=== PATIENT | female | born 1990 | race Caucasian/White ===

== ENCOUNTER 2020-08-23 03:42 | Emergency (ER) | payer OTHER ==
[~2020-08-23] VITALS: Ht 175.3 cm; Wt 79.1 kg
--- NOTE | 2020-08-23 03:45 | NUR ---
INITIAL PT CONTACT. PT PRESENTS TO ED C/O "FEVER CHILLS X1 DAY, I ALSO HAVE A LOT OF BLOOD COMING OUT OF MY BUTT, JUST FINISHED ABX FOR UTI AND I HAVE A PRETTY BAD ERIC." PT SITTING UPRIGHT ON [facility] V[facility]. PT AMBULATORY TO BATHROOM, URINE SAMPLE COLLECTED AT THIS TIME. PT PLACED ON CONTINUOUS MONITORING. CALL LIGHT AND BELONGINGS WITHIN REACH. AWAITING ERP.
--- NOTE | 2020-08-23 03:58 | NUR ---
PT AMBULATORY WITH STEADY GAIT FROM TRIAGE TO ROOM 15
[2020-08-23] MEDS ORDERED: KETOROLAC 30 MG/1 ML ONE (04:24)
[2020-08-23] MEDS ORDERED: PROCHLORPERAZINE 5 MG/ML, 2ML ONE (04:24)
[2020-08-23] MEDS ORDERED: SUMATRIPTAN 6MG/0.5ML SQ ONE ×2 (04:24→04:30)
[2020-08-23] MEDS ORDERED: DIPHENHYDRAMINE 50 MG/ML, 1ML ONE (04:24)
[2020-08-23] MEDS ORDERED: DIPHENHYDRAMINE 50 MG/ML, 1ML IVPush ONE (04:30)
[2020-08-23] MEDS ORDERED: PROCHLORPERAZINE 5 MG/ML, 2ML IVPush ONE (04:30)
[2020-08-23] MEDS ORDERED: SODIUM CHLORIDE 0.9% 1,000ML IVBOLUS ONE (04:30)
[2020-08-23] MEDS ORDERED: SODIUM CHLORIDE FLUSH 10ML SYR IVF ONE (04:30)
[2020-08-23] MEDS ORDERED: KETOROLAC 30 MG/1 ML IVPush ONE (04:30)
[2020-08-23 05:46] VITALS: BP 114/62
--- NOTE | 2020-08-23 05:46 | NUR ---
Patient given discharge instructions and they have confirmed that they understand the instructions. Patient ambulatory with steady gait.
== END 2020-08-23 05:54 | disposition home or self-care (01) ==
LOC: ED 05:48
DX: G43.009 Migraine without aura, not intractable, without status migrainosus (principal); K64.8 Other hemorrhoids
CPT/HCPCS: 96361; 96372; 96374; 96375; 99284; J0780; J1200; J1885; J3030; J7030